=== PATIENT | female | born 1995 | race Caucasian/White ===

== ENCOUNTER 2016-07-21 17:31 | Emergency (ER) | payer BC, MEDICAID ==
[~2016-07-21] VITALS: Ht 162.6 cm; Wt 55.8 kg
[2016-07-21 17:42] VITALS: BP 123/75
--- NOTE | 2016-07-21 18:30 | NUR ---
C/O RASH TO BILATERAL ARMS, PT. STATES ITS BEEN GOING ON FOR A COUPLE YEARS ON AND OFF, PT. STATES SHE HAS BEEN TREATED WITH STEROIDS IN THE PAST AND THAT HELPS, NO VISIBLE SIGNS OF DISTRESS NOTED, BREATHING EVEN AND UNLABORED, AAOX4, AMBULATORY, GAIT STEADY
[2016-07-21] MEDS ORDERED: methylPREDNISolone SS 125 MG in WATER STERILE 2 ML IM ONE (18:35)
[2016-07-21 18:54] VITALS: BP 123/75
--- NOTE | 2016-07-21 18:55 | NUR ---
Patient discharged with v/s stable. Written and verbal after care instructions given and explained. Patient alert, oriented and verbalized understanding of instructions. Ambulatory with steady gait. All questions addressed prior to discharge. ID band removed. Patient advised to follow up with PMD. Rx of MEDROL DOSEPAK given. Patient educated on indication of medication including possible reaction and side effects. Opportunity to ask questions provided and answered.
== END 2016-07-21 18:55 | disposition home or self-care (01) ==
LOC: MED 17:31
DX: L30.9 Dermatitis, unspecified (principal); R03.0 Elevated blood-pressure reading, without diagnosis of hypertension
CPT/HCPCS: 96372; 99283; J2930